=== PATIENT | female | born 1965 | race Caucasian/White ===

== ENCOUNTER 2018-08-27 10:45 | Emergency (ER) | payer BC ==
[2018-08-27 11:07] VITALS: BP 162/84
--- NOTE | 2018-08-27 11:39 | UC ---
Dizzy HPI HPI Summary: dizziness x 7 days severe dizziness, worse with any activities and movements no nausea or vomiting, + headaches, had sinus infection about 10 days ago was treated with Augmentin no ear pain ,no ringing in her ears no fever, no chills, has been having elevated bp , no chest pain , no sob - History Of Current Complaint Chief Complaint: UCRespiratory Stated Complaint: DIZZY,RESPIRATORY COMPLAINT Time Seen by Provider: 08/27/18 11:08 Hx Obtained From: Patient Hx Last Menstrual Period: 07/30/18 Onset/Duration: Gradual Onset, Lasting Days - 7, Still Present Timing: Constant Severity Initially: Moderate Severity Currently: Severe Pain Intensity: 0 Character: Head Spinning, Room Spinning, Dizzy Aggravating Factor(s): Exertion, Position Change, Change In Head Position Alleviating Factor(s): Nothing Associated Signs And Symptoms: Negative: Nausea, Vomiting, Diaphoresis, Tinnitus , SOB, Palpitations, Unsteady Gait, Visual Changes - Allergies/Home Medications Allergies/Adverse Reactions: Allergies Allergy/AdvReac Type Severity Reaction Status Date / Time No Known Allergies Allergy Verified 08/27/18 11:02 PMH/Surg Hx/FS Hx/Imm Hx Previously Healthy: Yes - Surgical History Surgical History: Yes Surgery Procedure, Year, and Place: c section x 2 - Family History Known Family History: Positive: None Negative: Diabetes - Social History Alcohol Use: Daily Alcohol Amount: few drinks/day Substance Use Type: None Smoking Status (MU): Current Every Day Smoker Type: Cigarettes Amount Used/How Often: 1 PPD Length of Time of Smoking/Using Tobacco: 40 years - Immunization History Most Recent Tetanus Shot: ~2009 Review of Systems All Other Systems Reviewed And Are Negative: Yes Constitutional: Positive: Negative Skin: Positive: Negative Eyes: Positive: Negative ENT: Positive: Nasal Discharge, Sinus Congestion, Sinus Pain/Tenderness. Negative: Sore Throat, Ear Ache Respiratory: Positive: Negative Cardiovascular: Positive: Negative Neurological: Positive: Headache, Weakness Is Patient Immunocompromised?: No Physical Exam Triage Information Reviewed: Yes Appearance: Well-Appearing, Well-Nourished Vital Signs: Initial Vital Signs Temp 97.5 F 08/27/18 11:03 Pulse 100 08/27/18 11:03 Resp 18 08/27/18 11:03 BP 162/84 08/27/18 11:03 Pulse Ox 99 08/27/18 11:03 Eyes: Positive: Conjunctiva Clear ENT: Positive: Normal ENT inspection, Hearing grossly normal, Pharynx normal, TMs normal. Negative: TM bulging, TM dull, TM red Neck: Positive: Supple, Nontender, No Lymphadenopathy Respiratory: Positive: Chest non-tender, Lungs clear, Normal breath sounds Cardiovascular: Positive: RRR, No Murmur, Pulses Normal Musculoskeletal Exam: Normal Neurological Exam: Normal Neurological: Positive: Alert Skin Exam: Normal UC Physical Exam Vital Signs On Initial Exam: Initial Vitals Temp Pulse Resp BP Pulse Ox 97.5 F 100 18 162/84 99 08/27/18 11:03 08/27/18 11:03 08/27/18 11:03 08/27/18 11:03 08/27/18 11:03 - Neurological Exam Neurological: Normal, Sensory/Motor Intact, Alert, Oriented to Person Place, Time, CN Intact II-III, Reflexes Intact, Normal Gait, Speech Normal Dizzy Course/Dx - Course Course Of Treatment: elevated bp due to current illness - Differential Dx/Diagnosis Provider Diagnosis: Vertigo, Elevated blood pressure reading Discharge - Sign-Out/Discharge Documenting (check all that apply): Patient Departure All imaging exams completed and their final reports reviewed: No Studies - Discharge Plan Condition: Stable Disposition: HOME Prescriptions: Meclizine TAB* [Antivert 12.5 TAB*] 25 mg PO TID PRN #15 tab PRN Reason: Dizziness Patient Education Materials: Vertigo (ED) Forms: *Work Release Referrals: Sarah EASON,Pj Reyes [Primary Care Provider] - 7 Days - Billing Disposition and Condition Condition: STABLE Disposition: Home
== END 2018-08-27 11:40 | disposition home or self-care (01) ==
LOC: UCCORT 10:45
DX: R42 Dizziness and giddiness (principal); R03.0 Elevated blood-pressure reading, without diagnosis of hypertension; R51 Headache; R53.1 Weakness; F17.210 Nicotine dependence, cigarettes, uncomplicated
CPT/HCPCS: 99212; G0463